=== PATIENT | female | born 1975 | race Caucasian/White ===

== ENCOUNTER 2017-11-03 09:28 | Emergency (ER) | payer OTHER ==
[2017-11-03 09:40] VITALS: Ht 152.4 cm
[2017-11-03 13:22] VITALS: BP 148/99
== END 2017-11-03 13:22 | disposition home or self-care (01) ==
LOC: ED 09:28
DX: N81.4 Uterovaginal prolapse, unspecified (principal); Z98.51 Tubal ligation status
CPT/HCPCS: Q0092